=== PATIENT | male | born 1995 | race Caucasian/White ===

== ENCOUNTER 2019-08-30 14:39 | Emergency (ER) | payer SELFPAY ==
[~2019-08-30] VITALS: Ht 177.8 cm; Wt 68.0 kg
[2019-08-30 14:45] VITALS: BP 133/83
== END 2019-08-30 14:50 | disposition left against medical advice (07) ==
LOC: MED 14:39
DX: R10.9 Unspecified abdominal pain (principal); F15.90 Other stimulant use, unspecified, uncomplicated; Z11.3 Encounter for screening for infections with a predominantly sexual mode of transmission
CPT/HCPCS: 99283